=== PATIENT | female | born 1965 | race Caucasian/White ===

== ENCOUNTER 2017-10-09 15:09 | Observation (INO) | payer BC, OTHER ==
[~2017-10-09] VITALS: Ht 167.6 cm; Wt 79.3 kg
[2017-10-09] MEDS ORDERED: NITROGLYCERIN SINGLE TAB 0.4 MG SL PRN (15:30)
[2017-10-09] MEDS ORDERED: SODIUM CHLORIDE FLUSH 10ML SYR IVF ONE (15:30)
[2017-10-09] MEDS ORDERED: ASPIRIN 81 MG TABLET CHEW PO ONE (15:30)
[2017-10-09 15:46] LABS: BASOPHILS # (AUTO) 0.03 x10^3/uL (0-0.1); BASOPHILS % (AUTO) 0 % (0-1); EOSINOPHILS # (AUTO) 0.16 x10^3/uL (0-0.4); EOSINOPHILS % (AUTO) 2 % (1-7); LYMPHOCYTES # (AUTO) 1.57 x10^3/uL (1-3.4); LYMPHOCYTES % (AUTO) 18 % (22-44); MD NO; MEAN CORPUSCULAR HEMOGLOBIN 35.7 pg (27.0-34.8); MEAN CORPUSCULAR HGB CONC 35.2 g/dL (32.4-35.8); MEAN CORPUSCULAR VOLUME 101.3 fL (80-100); MONOCYTES # (AUTO) 0.62 x10^3/uL (0.2-0.8); MONOCYTES % (AUTO) 7 % (2-9); NEUTROPHILS # (AUTO) 6.17 x10^3/uL (1.8-6.8); NEUTROPHILS % (AUTO) 72 % (42-75); PLATELET COUNT 248 x10^3/uL (130-400); RED BLOOD COUNT 4.38 x10^6/uL (3.82-5.3); RED CELL DISTRIBUTION WIDTH 13.1 % (9.6-15.2)
[2017-10-09 15:54] LABS: ALBUMIN 4.5 g/dL (3.4-5.0); ANION GAP 9 mmol/L (5-15); CALCIUM 9.9 mg/dL (8.5-10.1); CHLORIDE 105 mmol/L (98-107); CREATININE 0.87 mg/dL (0.55-1.02); D-DIMER 0.36 ug/mlFEU (0.00-0.52); INTERNATIONAL NORMALIZED RATIO 0.96 (0.93-1.1)
[2017-10-09] MEDS ORDERED: ASPIRIN 81 MG TABLET CHEW ONE (15:55)
[2017-10-09 15:58] LABS: TROPONIN I < 0.015 ng/mL (0.000-0.045)
[2017-10-09] MEDS ORDERED: SODIUM CHLORIDE FLUSH 10ML SYR IVF PRN (17:00)
[2017-10-09] MEDS ORDERED: MAALOX/HYOSCYAMINE/LIDOCAINE 45 ML BTL ONE (17:43)
[2017-10-09] MEDS ORDERED: ONDANSETRON 2MG/ML, 2ML ONE (17:43)
[2017-10-09] MEDS ORDERED: FAMOTIDINE 20 MG/2 ML ONE (17:43)
[2017-10-09] MEDS ORDERED: ENALAPRILAT 1.25 MG/ML, 2ML IVPush PRN (18:00)
[2017-10-09] MEDS ORDERED: TEMAZEPAM 15 MG CAPSULE PO PRN (18:00)
[2017-10-09] MEDS ORDERED: ONDANSETRON 2MG/ML, 2ML IVPush PRN (18:00)
[2017-10-09] MEDS ORDERED: DOCUSATE 100 MG CAPSULE PO PRN (18:00)
[2017-10-09] MEDS ORDERED: ACETAMINOPHEN 325 MG TABLET PO PRN (18:00)
[2017-10-09 18:08] VITALS: BP 144/85
[2017-10-09] MEDS: HEPARIN 5,000 UNITS/ML, 1ML SQ SCH (18:48)
[2017-10-09 22:18] LABS: TROPONIN I < 0.015 ng/mL (0.000-0.045)
[2017-10-10 01:03] VITALS: BP 145/78
[2017-10-10] MEDS: HEPARIN 5,000 UNITS/ML, 1ML SQ SCH ×2 (03:00→10:00)
[2017-10-10 04:12] LABS: TROPONIN I < 0.015 ng/mL (0.000-0.045)
[2017-10-10] MEDS ORDERED: REGADENOSON 0.4 MG/5 ML SYRINGE ONE (08:04)
[2017-10-10 08:35] VITALS: BP 123/80
[2017-10-10] MEDS ORDERED: OMEP-110 PO (13:16)
[2017-10-10] MEDS ORDERED: HYDR25TA6 PO (13:16)
== END 2017-10-10 14:19 | disposition home or self-care (01) ==
LOC: ED 17:04 → EDIP 17:51 → INTOOBSV 17:51 → 5SO 17:53
PROVIDERS: ADMIT Family Medicine; ATTEND Internal Medicine
DX: R07.89 Other chest pain (principal); I11.9 Hypertensive heart disease without heart failure; Z82.49 Family history of ischemic heart disease and other diseases of the circulatory system; Z79.82 Long term (current) use of aspirin
CPT/HCPCS: 36415; 71045; 78452; 80048; 82040; 83880; 84484; 85025; 85379; 85610; 85730; 93005; 93017; 93306; 96372; 99285; A9502; C9898; G0378; J1644; J2785

== ENCOUNTER → 2017-12-02 | Outpatient (CLI) | payer BC ==
[~2017-12-02] MED LIST: HYDR25TA6 PO; OMEP-110 PO
== END | disposition home or self-care (01) ==
LOC: CFH 09:53
PROVIDERS: ATTEND Nurse Practitioner Family
DX: K76.0 Fatty (change of) liver, not elsewhere classified (principal)
CPT/HCPCS: 76700